=== PATIENT | female | born 1995 | race American Indian/Alaskan Native ===

== ENCOUNTER 2019-06-30 09:11 | Emergency (ER) | payer MEDICAID ==
[~2019-06-30] VITALS: Ht 160 cm; Wt 50.0 kg
[2019-06-30 09:13] VITALS: BP 104/69
[2019-06-30] MEDS ORDERED: TETanus/Pertussis (Acell)/Diphther VAC/PF (Tdap-Adult) 0.5ml syringe IM ONE (11:10)
[2019-06-30] MEDS ORDERED: LIDOcaine 1% w/epiNEPHrine 1:200,000 30ml vial IM ONE (11:10)
== END 2019-06-30 11:56 | disposition home or self-care (01) ==
LOC: ER 09:11
DX: S01.01XA Laceration without foreign body of scalp, initial encounter (principal); F31.9 Bipolar disorder, unspecified; W22.8XXA Striking against or struck by other objects, initial encounter; Y93.89 Activity, other specified; Y92.89 Other specified places as the place of occurrence of the external cause; Y99.8 Other external cause status
CPT/HCPCS: 12001; 90471; 99283